=== PATIENT | male | born 1985 | race Caucasian/White ===

== ENCOUNTER 2024-06-06 13:44 | Outpatient (CLI) | payer BC, SELFPAY ==
--- NOTE | ~2024-06-06 | XR_ITS ---
XR knee RT 3V 06/06/2024 14:01 Indication: Right knee pain for 4 months Procedure: 3 views right knee Comparison: No prior studies for comparison. Findings: There is mild osteoarthritis. No fracture, subluxation or dislocation. There is anatomic al ignment. No significant joint effusion. Impression: 1: Mild osteoarthritis. Reviewed, dictated and finalized at location B. Impression: 1: Mild osteoarthritis.
--- NOTE | ~2024-06-06 | XR_ITS ---
EXAM: XR shoulder LT min 2V DATE: 06/06/2024 14:01 HISTORY: chronic lt shoulder pain x 7 years . COMPARISON: None available. FINDINGS: Normal mineralization. No fracture or dislocation. No lytic or blastic lesion. Joint space s are maintained. No erosion or periosteal change. Soft tissues within normal limits. IMPRESSION: Unremarkable left shoulder radiograph findings. Reviewed, dictated and finalized at location K.
[2024-06-06 19:21] LABS: Hematocrit 46.9 % (42.0-52.0); Hemoglobin 16.1 g/dL (14.0-18.0); Mean Corpuscular HGB Conc 34.3 g/dl (32-36); Mean Corpuscular Hemoglobin 31.9 pg (26-34); Mean Corpuscular Volume 93.1 fl (80-100); Mean Platelet Volume 11.6 fl (7.4-10.4); Platelet Count Result 241 k/mm3 (150-375); Red Blood Count 5.04 M/mm3 (4.6-6.20); Red Cell Distribution Width 12.6 % (11.5-14.5); White Blood Count 6.9 K/mm3 (4.5-10.0)
[2024-06-06 19:56] LABS: Alanine Aminotransferase 31 U/L (6-50); Albumin Level 4.6 g/dL (3.5-5.1); Alkaline Phosphatase 54 U/L (38-126); Anion Gap 11 mmol/L (4-12); Aspartate Amino Transferase 60 U/L (17-59); Bilirubin,Total 0.5 mg/dL (0.2-1.3); Blood Urea Nitrogen 20 mg/dL (9-20); Calcium 9.2 mg/dL (8.4-10.2); Carbon Dioxide 29 mmol/L (22-30); Chloride 99 mmol/L (98-107); Cholesterol 163 mg/dL (0-200); Estimated Glomerular Filt Rate > 60; Glucose 84 mg/dL (65-110); HDL Direct 34 mg/dL; Potassium 4.2 mmol/L (3.4-5.0); Sodium 139 mmol/L (137-145); Triglycerides 258 mg/dL (<150)
[2024-06-06 20:07] LABS: LDL Cholesterol Direct 88 mg/dL
== END 2024-06-06 13:45 | disposition home or self-care (01) ==
PROVIDERS: PCP Nurse Practitioner Adult Health; Visit Provider Nurse Practitioner Adult Health
DX: Z13.9 Encounter for screening, unspecified (principal); M25.512 Pain in left shoulder; M25.561 Pain in right knee; M17.11 Unilateral primary osteoarthritis, right knee
CPT/HCPCS: 36415; 73030; 73562; 80053; 80061; 84443; 85027

== ENCOUNTER 2024-10-25 11:07 | Emergency (ER) | payer BC, SELFPAY ==
--- NOTE | 2024-10-25 11:13 | ED.GENADULT ---
HPI - General Adult General Chief complaint: Unspecified Stated complaint: stomach issue Time Seen by Provider: 10/25/24 11:29 Source: patient, RN notes reviewed and old records reviewed Mode of arrival: ambulatory Limitations: no limitations History of Present Illness HPI narrative: Patient presents with complaints of 5 days of bilateral lower abdominal pain, worse with sitting. Reports fever of 100 that has been limited to the evening hours for the past 5 days. He reports slightly decreased appetite, but denies any nausea or vomiting. Says that he thought he was constipated, so on Monday he took milk of magnesia and Dulcolax. Reports that he had watery stool for couple of hours, but now stool is ?like a rodriguez?. Denies any past abdominal surgeries. Denies any injury or trauma. Denies any urinary symptoms. Voices no other concerns or complaints today Related Data Allergies Allergy/AdvReac Type Severity Reaction Status Date / Time No Known Allergies Allergy Verified 10/25/24 11:08 Review of Systems Review of Systems: All systems reviewed & are unremarkable except as noted in HPI and below Constitutional: Constitutional: Reports no additional constitutional complaints ENT: Reports system reviewed and no additional complaints, except as documented Cardiovascular: Cardiovascular: Reports no additional cardiovascular complaints Respiratory: Respiratory: Reports no additional respiratory complaints Gastrointestinal: Gastrointestinal: Reports as per HPI, Reports no additional gastrointestinal complaints, Reports abdominal pain, Reports change in stool character, Reports constipation, Reports diarrhea and Denies vomiting PMFSH Past Medical History Medical History Carpal tunnel syndrome Encounter for preventative adult health care examination Surgical History Surgical History Hx of elbow surgery History of surgery on lower extremity H/O cervical spine surgery Family History Family History Father No problems noted. Mother Thyroid activity decreased Sibling Thyroid activity decreased Social History Social History Smoking status: Never smoker Second hand tobacco smoke exposure: Yes Alcohol intake: current Substance use: never Substance use type: does not use Do You Feel Safe in your Home?: Yes Lack of Transportation: No Lack of Food: Never True Current Housing: I Have Housing Concerned About Future Housing: Decline to Answer Difficulty Paying Gas/Electric Bills: Decline to Answer Difficulty Paying for Meds: Decline to Answer Currently Unemployed: Decline to Answer Education: Decline to Answer Difficulty w/ Childcare or Family Care: Decline to Answer Living arrangements: with family Occupation/Education: occupation 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 There is no relevant family history pertinent to the patient complaint. Exam Const: General: cooperative, no acute distress, alert and awake Orientation/consciousness: oriented to person, oriented to place and oriented to time HENMT: Head: normal to inspection Mouth: Yes moist mucous membranes Resp: Effort & Inspection: normal respiratory effort and able to speak in complete sentences Auscultation: clear to auscultation bilaterally, no crackles, no rales, no rhonchi and no wheezes Cardio: Palpation: normal PMI Rate: regular rate Rhythm: regular rhythm Heart sounds: S1 normal heart sound present and S2 normal heart sound present GI: GI Palp: Yes abdominal tenderness, Yes Soft to palpation, Yes Tenderness to palpation present (GI) (Bilateral lower quad) and Yes Guarding due to palpation present (GI) (Bilateral lower quadrant) Auscultation: normal bowel sounds Neuro: General: oriented to person, oriented to place and oriented to time Cranial nerves: Yes CN's II-XII intact bilaterally Psych: Appearance: grossly normal Thought process: Normal thought process present Insight: Good insight present (Psych) Judgement: Good judgement present (Psych) Course Course Level of Care: Express Care Visit Vital Signs Vital signs: Reviewed Transfer Transfered to: Bill Transportation: Other (Private vehicle) Transfer rationale: Patient with tenderness and guarding bilateral lower abdomen. Needs further workup than [facility] come can provide Medical Decision Making MDM Narrative Medical decision making narrative: Patient with change in stool pattern, bilateral lower abdominal pain, guarding on exam. Transferred to emergency department for further workup than what can be offered at [facility] Discharge instructions reviewed with patient, as well as provided in writing per nursing staff. The instructions also include specific and strict return/GO TO THE ER as well as f/u information. All questions have been answered, and the patient deny any further questions with discharge and discharge plan. Some parts of this dictation were generated by voice recognition software and may contain typographical and/or grammatical inaccuracies. Differential Diagnosis Differential Diagnosis: Diverticulitis, appendicitis, constipation, bowel obstruction Medical Records Medical records reviewed: Yes I reviewed the external patient's medical records. Vital Signs Vital Signs: reviewed Lab Data Lab results reviewed: Yes I reviewed the patient's lab results. Lab results narrative: reviewed Discharge Plan Discharge Clinical Impression: Abdominal pain Qualifiers: Abdominal location: lower abdomen, unspecified Qualified Code(s): R10.30 - Lower abdominal pain, unspecified Patient Disposition: Acute Care Hospital Condition: Stable Instructions: Antibiotic Form Additional Instructions: Go straight to emergency department. Do not stop to eat or drink Patient Language: Vietnamese Follow-up/Referrals: Melly Almazan APRN [Primary Care Provider] - Time of Disposition: 11:45
[2024-10-25 11:17] VITALS: BP 127/80; PULSE 66; RESP 16; TEMP 36.1; O2SAT 99
== END 2024-10-25 11:46 | disposition short-term general hospital (02) ==
PROVIDERS: Emergency Provider Nurse Practitioner Family; PCP Nurse Practitioner Adult Health
DX: R10.31 Right lower quadrant pain (principal); R10.32 Left lower quadrant pain
CPT/HCPCS: 99212; G0463

== ENCOUNTER 2024-10-25 12:01 | Emergency (ER) | payer BC, SELFPAY ==
--- NOTE | ~2024-10-25 | CT_ITS ---
EXAMINATION: CT abdomen pelvis w con DATE: 10/25/2024 14:01 INDICATION: Low abdominal pain. TECHNIQUE: Computed tomography (CT) of the abdomen and pelvis was performed with 100 mL Omnipaque 350 intravenous contrast. Automated exposure control and iterative reconstruction technique were employe d. The dose-length product was 686.43 mGy-cm. COMPARISON: None. FINDINGS: The visualized portions of the lung bases demonstrate mild atelectasis. There is a 3 mm nod ule left lower lobe, likely benign. No pleural effusion. The heart size is normal. No pericardial eff usion. There is a 14 mm mass in right hepatic lobe. A calcification in the liver is consistent with old granulomatous disease. The gallbladder, spleen, pancreas, adrenal glands, and kidneys are normal. There is fat stranding around a diverticulum of the sigmoid colon, consistent with diverticulitis. T here are no dilated loops of bowel. The appendix is normal. There are no pathologically enlarged lymp h nodes. There is no free intraperitoneal fluid. There are chronic bilateral L5 pars defects. There i s 6 mm anterolisthesis of L5 on S1. There is mild chronic anterior wedging of T12 vertebral bodies. T here is moderate thoracic spondylosis. There is severe lower lumbar spondylosis. IMPRESSION: 1. Acute sigmoid diverticulitis. No perforation or abscess. 2. 14 mm liver mass, which may be benign or less likely malignant. Abdomen MRI without and with contr ast is recommended. Reviewed, dictated and finalized at location A. 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 Acute sigmoid diverticulitis. No perforation or abscess. 2. 14 mm liver mass, which may be benign or less likely malignant. Abdomen MRI without and with contrast is recommended.
[2024-10-25 12:06] VITALS: BP 131/77; PULSE 71; RESP 16; TEMP 36.5; O2SAT 98
--- NOTE | 2024-10-25 13:11 | ED.ABDPAIN ---
HPI - Abdominal Pain General Chief Complaint: Abdominal Pain <Weston Narayanan PA-C - Last Filed: 10/25/24 16:33> Stated Complaint: abd pain <Weston Narayanan PA-C - Last Filed: 10/25/24 16:33> Time Seen by Provider: 10/25/24 16:16 <Weston Narayanan PA-C - Last Filed: 10/25/24 16:33> Focused HPI: This is a 39-year-old male who presents to the ED for chief complaint of lower abdominal pain for the past 5 days. Reports he starting to get fevers at nighttime. States this to control will up to 100 F at night. Endorses slight bilateral flank pain on initial onset, however this has subsided. He has not had any urinary symptoms. thought he was maybe constipated so he took Dulcolax but has hadno diarrhea otherwise. [facility] due to lower abdominal tenderness. No abdominal surgical Hx. GENERAL: Well-appearing, well-nourished, and in no acute distress. HEAD: Normocephalic, atraumatic. CHEST: Clear to auscultation. No respiratory distress. HEART: Regular rate and rhythm. ABD: soft, tenderness across lower abdomen. Abdomen is not rigid. NEURO: Alert and oriented x3. Patient screened in triage and initial orders placed. Additional care and disposition to be based upon diagnostic testing and treatment. <Weston Narayanan PA-C - Last Filed: 10/25/24 16:33> Source: patient <Weston Narayanan PA-C - Last Filed: 10/25/24 16:33> Mode of arrival: ambulatory <Weston Narayanan PA-C - Last Filed: 10/25/24 16:33> Limitations: no limitations <Weston Narayanan PA-C - Last Filed: 10/25/24 16:33> History of Present Illness HPI narrative: Agree with HPI <Casey Mcfarland MD - Last Filed: 10/25/24 16:51> Related Data Allergies/Adverse Reactions: Allergies Allergy/AdvReac Type Severity Reaction Status Date / Time No Known Allergies Allergy Verified 10/25/24 11:08 <Weston Narayanan PA-C - Last Filed: 10/25/24 16:33> Review of Systems Review of Systems: All systems reviewed & are unremarkable except as noted in HPI and below <Casey Mcfarland MD - Last Filed: 10/25/24 16:51> Constitutional: Constitutional: Reports no additional constitutional complaints <Casey Mcfarland MD - Last Filed: 10/25/24 16:51> Cardiovascular: Cardiovascular: Reports no additional cardiovascular complaints <Casey Mcfarland MD - Last Filed: 10/25/24 16:51> Respiratory: Respiratory: Reports no additional respiratory complaints <Casey Mcfarland MD - Last Filed: 10/25/24 16:51> Gastrointestinal: Gastrointestinal: Reports no additional gastrointestinal complaints <Casey Mcfarland MD - Last Filed: 10/25/24 16:51> [facility] Past Medical History Medical History: Medical History Carpal tunnel syndrome Encounter for preventative adult health care examination <Weston Narayanan PA-C - Last Filed: 10/25/24 16:33> Surgical History Surgical History: Surgical History Hx of elbow surgery History of surgery on lower extremity H/O cervical spine surgery <Weston Narayanan PA-C - Last Filed: 10/25/24 16:33> Family History Family History: Family History Father No problems noted. Mother Thyroid activity decreased Sibling Thyroid activity decreased <Weston Narayanan PA-C - Last Filed: 10/25/24 16:33> Social History Social History: Social History Smoking status: Never smoker Second hand tobacco smoke exposure: Yes Alcohol intake: current Substance use: never Substance use type: does not use Do You Feel Safe in your Home?: Yes Lack of Transportation: No Lack of Food: Never True Current Housing: I Have Housing Concerned About Future Housing: Decline to Answer Difficulty Paying Gas/Electric Bills: Decline to Answer Difficulty Paying for Meds: Decline to Answer Currently Unemployed: Decline to Answer Education: Decline to Answer Difficulty w/ Childcare or Family Care: Decline to Answer Living arrangements: with family Occupation/Education: occupation 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 HEAD: Normocephalic, atraumatic. ENT: Mucous membranes moist. CHEST: Clear to auscultation. No respiratory distress. HEART: Regular rate and rhythm. Normal peripheral pulses. ABDOMEN: Soft, tender palpation bilateral lower quadrants, nondistended. EXTREMITIES: Normal range of motion. No edema. SKIN: Warm, dry, no rash. NEURO: Alert and oriented x3. PSYCH: Normal mood and affect. <Casey Mcfarland MD - Last Filed: 10/25/24 16:51> Course Course Emergency Course: Patient resting comfortably. Informed of results. Discharge home with supportive care and antibiotics. <Casey Mcfarland MD - Last Filed: 10/25/24 16:51> Vital Signs Vital signs: Vital Signs Temperature 97.7 F 10/25/24 12:06 Pulse Rate 71 10/25/24 12:06 Respiratory Rate 16 10/25/24 12:06 Blood Pressure 131/77 10/25/24 12:06 Pulse Oximetry 98 10/25/24 12:06 Temperature 97.8 F 10/25/24 16:19 Pulse Rate 78 10/25/24 16:19 Respiratory Rate 16 10/25/24 16:19 Blood Pressure 120/87 10/25/24 16:19 Pulse Oximetry 99 10/25/24 16:19 <Weston Narayanan PA-C - Last Filed: 10/25/24 16:33> Vital Signs Temperature 97.7 F 10/25/24 12:06 Pulse Rate 71 10/25/24 12:06 Respiratory Rate 16 10/25/24 12:06 Blood Pressure 131/77 10/25/24 12:06 Pulse Oximetry 98 10/25/24 12:06 Temperature 97.8 F 10/25/24 16:19 Pulse Rate 78 10/25/24 16:19 Respiratory Rate 16 10/25/24 16:19 Blood Pressure 120/87 10/25/24 16:19 Pulse Oximetry 99 10/25/24 16:19 <Casey Mcfarland MD - Last Filed: 10/25/24 16:51> MDM - Abdominal Pain Lab Data Result diagrams: 10/25/24 13:20 10/25/24 13:20 <Weston Narayanan PA-C - Last Filed: 10/25/24 16:33> Labs: Lab Results 10/25/24 Range/Units 13:20 WBC 10.3 H (4.5-10.0) K/mm3 RBC 5.21 (4.6-6.20) M/mm3 Hgb 16.7 (14.0-18.0) g/dL Hct 47.3 (42.0-52.0) % MCV 90.8 (80-100) fl MCH 32.1 (26-34) pg MCHC 35.3 (32-36) g/dl RDW 12.0 (11.5-14.5) % Plt Count 240 (150-375) k/mm3 MPV 10.6 H (7.4-10.4) fl Immature Gran % (Auto) 0.3 (0-0.5) % Neut % (Auto) 70.2 (45.5-73.1) % Lymph % (Auto) 19.2 (18.3-44.2) % Sebastian % (Auto) 8.5 (2.6-8.5) % Eos % (Auto) 0.9 (0-4.4) % Baso % (Auto) 0.9 (0.2-1.2) % Lymph # (Auto) 1.97 (0.9-3.2) K/mm3 Sebastian # (Auto) 0.9 H (0.1-0.6) K/mm3 Eos # (Auto) 0.1 (0-0.3) K/mm3 Baso # (Auto) 0.1 (0.0-0.1) K/mm3 Abs Immat Gran (auto) 0.03 (0.00-0.031) K/mm3 Absolute Neuts (auto) 7.2 H (1.3-6.7) K/mm3 Absolute Nucleated RBC 0.000 (0.0-0.012) K/mm3 Nucleated RBC % 0.0 (0.0-0.2) % Sodium 142 (137-145) mmol/L Potassium 4.2 (3.4-5.0) mmol/L Chloride 100 (98-107) mmol/L Carbon Dioxide 34 H (22-30) mmol/L Anion Gap 8 (4-12) mmol/L BUN 21 H (9-20) mg/dL Creatinine 1.08 (0.7-1.3) mg/dL Estim Creat Clear Calc 96 ml/min Estimated GFR > 60 (59 - ) Glucose 98 (65-110) mg/dL Calcium 9.7 (8.4-10.2) mg/dL Total Bilirubin 0.9 (0.2-1.3) mg/dL AST 54 (17-59) U/L ALT 167 H (6-50) U/L Alkaline Phosphatase 59 (38-126) U/L Total Protein 8.0 (6.3-8.2) g/dL Albumin 4.7 (3.5-5.1) g/dL Lipase 22 L (23-300) U/L Urine Color Dark yellow (Yellow) Urine Appearance Clear (Clear) Urine pH 6.0 (5.0-9.0) Ur Specific [place] 1.022 (1.001-1.035) Urine Protein Trace (Negative) mg/dL Urine Glucose (UA) Negative (Negative) mg/dL Urine Ketones Trace H (Negative) mg/dL Ur Blood (Man) Negative (Negative) Urine Nitrate Negative (Negative) Urine Bilirubin Negative (Negative) Urine Urobilinogen 0.2 (<2.0) mg/dL Leukocyte Esterase Rfl Negative (Negative) JAMES/UL Urine RBC 3-5 H (0-2) /hpf Urine WBC 0-5 (0-3) /hpf Ur Squamous Epith Cells None seen (Few) /hpf Urine Bacteria None seen /hpf Urine Casts 3-5 <Weston Narayanan PA-C - Last Filed: 10/25/24 16:33> Lab Results 10/25/24 Range/Units 13:20 WBC 10.3 H (4.5-10.0) K/mm3 RBC 5.21 (4.6-6.20) M/mm3 Hgb 16.7 (14.0-18.0) g/dL Hct 47.3 (42.0-52.0) % MCV 90.8 (80-100) fl MCH 32.1 (26-34) pg MCHC 35.3 (32-36) g/dl RDW 12.0 (11.5-14.5) % Plt Count 240 (150-375) k/mm3 MPV 10.6 H (7.4-10.4) fl Immature Gran % (Auto) 0.3 (0-0.5) % Neut % (Auto) 70.2 (45.5-73.1) % Lymph % (Auto) 19.2 (18.3-44.2) % Sebastian % (Auto) 8.5 (2.6-8.5) % Eos % (Auto) 0.9 (0-4.4) % Baso % (Auto) 0.9 (0.2-1.2) % Lymph # (Auto) 1.97 (0.9-3.2) K/mm3 Sebastian # (Auto) 0.9 H (0.1-0.6) K/mm3 Eos # (Auto) 0.1 (0-0.3) K/mm3 Baso # (Auto) 0.1 (0.0-0.1) K/mm3 Abs Immat Gran (auto) 0.03 (0.00-0.031) K/mm3 Absolute Neuts (auto) 7.2 H (1.3-6.7) K/mm3 Absolute Nucleated RBC 0.000 (0.0-0.012) K/mm3 Nucleated RBC % 0.0 (0.0-0.2) % Sodium 142 (137-145) mmol/L Potassium 4.2 (3.4-5.0) mmol/L Chloride 100 (98-107) mmol/L Carbon Dioxide 34 H (22-30) mmol/L Anion Gap 8 (4-12) mmol/L BUN 21 H (9-20) mg/dL Creatinine 1.08 (0.7-1.3) mg/dL Estim Creat Clear Calc 96 ml/min Estimated GFR > 60 (59 - ) Glucose 98 (65-110) mg/dL Calcium 9.7 (8.4-10.2) mg/dL Total Bilirubin 0.9 (0.2-1.3) mg/dL AST 54 (17-59) U/L ALT 167 H (6-50) U/L Alkaline Phosphatase 59 (38-126) U/L Total Protein 8.0 (6.3-8.2) g/dL Albumin 4.7 (3.5-5.1) g/dL Lipase 22 L (23-300) U/L Urine Color Dark yellow (Yellow) Urine Appearance Clear (Clear) Urine pH 6.0 (5.0-9.0) Ur Specific [place] 1.022 (1.001-1.035) Urine Protein Trace (Negative) mg/dL Urine Glucose (UA) Negative (Negative) mg/dL Urine Ketones Trace H (Negative) mg/dL Ur Blood (Man) Negative (Negative) Urine Nitrate Negative (Negative) Urine Bilirubin Negative (Negative) Urine Urobilinogen 0.2 (<2.0) mg/dL Leukocyte Esterase Rfl Negative (Negative) JAMES/UL Urine RBC 3-5 H (0-2) /hpf Urine WBC 0-5 (0-3) /hpf Ur Squamous Epith Cells None seen (Few) /hpf Urine Bacteria None seen /hpf Urine Casts 3-5 <Casey Mcfarland MD - Last Filed: 10/25/24 16:51> Imaging Data Radiologist's impression: ITS Impressions Abdomen/Pelvis CT 10/25/24 14:18 IMPRESSION: 1. Acute sigmoid diverticulitis. No perforation or abscess. 2. 14 mm liver mass, which may be benign or less likely malignant. Abdomen MRI without and with contrast is recommended. <Weston Narayanan PA-C - Last Filed: 10/25/24 16:33> ITS Impressions Abdomen/Pelvis CT 10/25/24 14:18 IMPRESSION: 1. Acute sigmoid diverticulitis. No perforation or abscess. 2. 14 mm liver mass, which may be benign or less likely malignant. Abdomen MRI without and with contrast is recommended. <Casey Mcfarland MD - Last Filed: 10/25/24 16:51> Discharge Plan Discharge Clinical Impression: Diverticulitis, Liver mass <Weston Narayanan PA-C - Last Filed: 10/25/24 16:33> Patient Disposition: Home, Self-Care <Weston Narayanan PA-C - Last Filed: 10/25/24 16:33> Condition: Stable <Weston Narayanan PA-C - Last Filed: 10/25/24 16:33> Instructions: Antibiotic Form, Diverticulitis (ED) <CHRISTA Salinas Last Filed: 10/25/24 16:33> Additional Instructions: Return to the emergency department if you develop severe abdominal pain, severe nausea and vomiting to the point where you are unable to keep down fluids, if you develop chest pain or difficulty breathing, blood in your stool, dizziness or fainting, or if you develop any other new or concerning symptoms as these could be signs of more serious medical illness. Try to stay well hydrated. You need an MRI of the Abdomen with and without contrast to evaluate a liver mass. <Weston Narayanan PA-C - Last Filed: 10/25/24 16:33> Patient Language: Yemeni <Weston Narayanan PA-C - Last Filed: 10/25/24 16:33> Prescriptions: New amoxicillin-pot clavulanate 875-125 mg tablet 1 tablet PO Q12H Qty: 20 0RF <CHRISTA Salinas Last Filed: 10/25/24 16:33> Follow-up/Referrals: Melly Almazan APRN [Primary Care Provider] - 1 Week <CHRISTA Salinas Last Filed: 10/25/24 16:33>
[2024-10-25 13:36] LABS: Basophils Absolute Auto 0.1 K/mm3 (0.0-0.1); Basophils Percent Auto 0.9 % (0.2-1.2); Eosinophils Absolute Auto 0.1 K/mm3 (0-0.3); Eosinophils Percent Auto 0.9 % (0-4.4); Hematocrit 47.3 % (42.0-52.0); Hemoglobin 16.7 g/dL (14.0-18.0); Immature Granulocyte Absolute 0.03 K/mm3 (0.00-0.031); Immature Granulocyte Percent A 0.3 % (0-0.5); Lymphocytes Absolute Auto 1.97 K/mm3 (0.9-3.2); Lymphocytes Percent Auto 19.2 % (18.3-44.2); Mean Corpuscular HGB Conc 35.3 g/dl (32-36); Mean Corpuscular Hemoglobin 32.1 pg (26-34); Mean Corpuscular Volume 90.8 fl (80-100); Mean Platelet Volume 10.6 fl (7.4-10.4); Monocytes Absolute Auto 0.9 K/mm3 (0.1-0.6); Monocytes Percent Auto 8.5 % (2.6-8.5); Neutrophils Absolute Auto 7.2 K/mm3 (1.3-6.7); Neutrophils Percent Auto 70.2 % (45.5-73.1); Platelet Count Result 240 k/mm3 (150-375); Red Blood Count 5.21 M/mm3 (4.6-6.20); White Blood Count 10.3 K/mm3 (4.5-10.0)
[2024-10-25 13:43] LABS: Add Urine Microscopic? YES; Alanine Aminotransferase 167 U/L (6-50); Albumin Level 4.7 g/dL (3.5-5.1); Alkaline Phosphatase 59 U/L (38-126); Anion Gap 8 mmol/L (4-12); Appearance Urine Clear (Clear); Aspartate Amino Transferase 54 U/L (17-59); Bacteria Urine None Seen /hpf; Bilirubin Urine Negative (Negative); Bilirubin,Total 0.9 mg/dL (0.2-1.3); Blood Urea Nitrogen 21 mg/dL (9-20); Blood Urine Negative (Negative); Calcium 9.7 mg/dL (8.4-10.2); Carbon Dioxide 34 mmol/L (22-30); Chloride 100 mmol/L (98-107); Color Urine Dark Yellow (Yellow); Estimated CRCL calculation 96 ml/min; Estimated Glomerular Filt Rate > 60; Glucose 98 mg/dL (65-110); Glucose Urine UA Negative (Negative); Ketones Urine Trace mg/dL (Negative); Leukocyte Esterase Ur Negative LEU/UL (Negative); Lipase 22 U/L (23-300); Nitrate Urine Negative (Negative); Potassium 4.2 mmol/L (3.4-5.0); Protein Urine Trace mg/dL (Negative); Sodium 142 mmol/L (137-145); Specific Grav Ur 1.022 (1.001-1.035); Squamous Epithelial Cell Urine None Seen /hpf (Few); Urobilinogen Urine 0.2 mg/dL (<2.0); WBC Urine 0-5 /hpf (0-3)
[2024-10-25 16:19] VITALS: BP 120/87; PULSE 78; RESP 16; TEMP 36.6; O2SAT 99
== END 2024-10-25 17:08 | disposition home or self-care (01) ==
PROVIDERS: Physician Assistant; Emergency Provider Emergency Medicine; PCP Nurse Practitioner Adult Health
DX: K57.32 Diverticulitis of large intestine without perforation or abscess without bleeding (principal); R16.0 Hepatomegaly, not elsewhere classified; Z77.22 Contact with and (suspected) exposure to environmental tobacco smoke (acute) (chronic)
CPT/HCPCS: 36415; 74177; 80053; 81001; 83690; 85025; 99284; Q9967

== ENCOUNTER 2024-11-21 08:34 | Outpatient (CLI) | payer BC, SELFPAY ==
--- NOTE | ~2024-11-21 | MR_ITS ---
EXAMINATION: MR abdomen wo/w con DATE: 11/21/2024 09:42 INDICATION: Hepatomegaly TECHNIQUE: Magnetic resonance imaging (MRI) of the abdomen was performed without and with 20 mL Multi svetlana intravenous contrast. Sequences included coronal T2-weighted SS-FSE, coronal and axial FS 2D-F IESTA, axial STIR FSE, axial T2-weighted SS-FSE, axial T2-weighted FS SS-FSE, axial diffusion-weighte d SE, axial dual-echo T1-weighted FSPGR, and axial and coronal T1-weighted LAVA. Postcontrast axial T 1-weighted LAVA images were obtained in a time course. Postcontrast coronal T1-weighted LAVA images w ere obtained. COMPARISON: CT dated 10/25/2024 FINDINGS: Heart size is normal. No pericardial or pleural effusion. Mild bilateral gynecomastia. 2 cm T2 hyperi ntense hemangioma in the right hepatic lobe with progressively increasing contrast enhancement over t he 10 minutes of imaging. Phrygian cap at the fundus of the normal gallbladder. Nonspecific mild sple nomegaly measuring 13.6 cm in maximal length which could be related to body habitus pancreas, bilater al adrenal glands and kidneys are normal. Visualized bowels including the appendix are normal. No pat hologically enlarged abdominal lymphadenopathy. Severe disc height loss with fibrofatty degenerative endplate changes at L5-S1. Mild spondylosis and more cephalad lumbar and lower thoracic spine with no pathologic marrow replacing process. IMPRESSION: 1. 2 cm hemangioma in the right hepatic lobe. 2. Nonspecific mild splenomegaly which may be related to body habitus. Reviewed, dictated and finalized at location A. VIORAL INTERVENTIONIST
--- OUTSIDE RECORDS SUMMARY | 2024-11-21 08:42 | XMS_ITS | Referral Summary ---
Author Organization [facility] Address [address] [place] [address] Care Team Providers Care Gill Box Operator Name Role Phone XiomylaurelJamalony Primary Care Provider [phone] Allergies No known active allergies Medications HYDROcodone-acet aminophen (VICODIN) 5-500 mg per tablet take 1 tablet by oral route every 4 - 6 hours as needed for pain 0 08/13/2012 Active ibuprofen (ADVIL,MOTRIN) 800 mg tablet take 1 tablet (800MG) by oral route 3 times every day with food 0 08/13/2012 Active naproxen (NAPROSYN) 500 mg tablet Take 1 tablet (500 mg total) by mouth 2 (two) times a day as needed for pain Take with food. 30 tablet 02/25/2023 Active cyclobenzaprine (FLEXERIL) 10 mg tablet Take 1 tablet (10 mg total) by mouth 2 (two) times a day as needed for muscle spasms 20 tablet 02/25/2023 Active Immunizations Name Administration Dates Next Due Tdap 08/21/2020 Social History Tobacco Use Types Packs/Day Years Used Date Smoking Tobacco: Never Assessed Smokeless Tobacco: Never Alcohol Use Standard Drinks/Week Comments Not Currently 0 (1 standard drink = 0.6 oz pur e alcohol) Personal Safety Answer Date Recorded Have you ever been in or are you currently in a harmful physical or emotional relationship or is someone making you feel afraid or unsafe? 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 Gender Identity Not on file Sexual Orientation Not on file Last Filed Vital Signs Vital Sign Reading Time Taken Comments Blood Pressure 118/63 02/25/2023 6:36 AM CDT Pulse 59 02/25/2023 6:36 AM CDT Temperature 36.9 C (98.4 F) 02/25/2023 6:36 AM CDT Respiratory Rate 18 02/25/2023 6:36 AM CDT Oxygen Saturation 98% 02/25/2023 6:36 AM CDT Inhaled Oxygen Concentration - - Weight 99.8 kg (220 lb) 02/25/2023 6:36 AM CDT Height 177.8 cm (5' 10 ) 02/25/2023 6:36 AM CDT Body Mass Index 31.57 02/25/2023 6:36 AM CDT Plan of Treatment Not on file Insurance CHOICE PLUS CHOICE PLUS Member Subscriber Plan / Payer (Ef fective 2019-Present) Name:[employer] Relation to Subscriber:Spouse Name:KATE MALDONADO Date of :1984 (Home) Address: [address] [place] [address] Payer ID:[id number] (NAIC) Type:[facility] HMO/PPO Address: [address] PLAN Care Teams Gill Box Operator Relationship Specialty Start Date End Date Jamal Tapia DO PCP - General 01/07/10
--- OUTSIDE RECORDS SUMMARY | 2024-11-21 08:42 | XMS_ITS | Clinical Summary ---
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 Gender Identity Not on file Sexual Orientation Not on file Obstetrics History Last Filed Vital Signs Vital Sign Reading [...] 02/25/2023 6:36 AM CDT Plan of Treatment Health Maintenance Due Date Last Done Comments Depression Screening 1985 Hepatitis C Screening 1985 Varicella Vaccines (1 of 2 - 13+ 2-dose series) 1998 Regular Well Visit/Exam 18-64 2003 Covid-19 Vaccine (2 - 2023- season) 2024 05/18/2021 Influenza Vaccine (#1) 2024 DTaP/Tdap/Td Vaccine (6 - Td or Tdap) 08/21/2030 08/21/2020, 06/11/1990, 04/19/1989, Additional history exists HPV Vaccines Aged Out No longer eligi ble based on patient's age to complete this topic Pneumococcal vaccine <65 Aged Out No longer eligible based on patient's age to complete this topic Insurance [facility] CHOICE PLUS [facility] PLAN RASHEED BARNETT [id number] SI Care Teams Registered Medical Assistant Relationship Specialty Start Date End Date Jamal Tapia DO PCP - General 01/07/10
--- OUTSIDE RECORDS SUMMARY | 2024-11-21 08:42 | XMS_ITS | Clinical Summary ---
Author Organization [facility] Address [address] [place] [address] Phone Care Team Providers Care Claim Service Representative Name Role Phone Jamal Tapia DO Primary Care Provider +1- [phone] Social History Tobacco Use Types Packs/Day Years Used Date Smoking Tobacco: Never Assessed Sex and Gender Information Value Date Recorded Sex Assigned at Not on file Legal Sex Male 10:54 PM CDT Gender Identity Not on file Sexual Orientation Not on file Plan of Treatment Health Maintenance Due Date Last Done Comments Hepatitis C Virus (HCV) Screening 1985 TdaP Immunization 1985 Hepatitis B Immunization (1 of 3 - 19+ 3-dose series) 2004 Influenza Immunization (#1) 2024 SARS-COV-2 Immunization ( - season) 2024 Respiratory Syncytial Virus (RSV) Immunization (Adult) (1 - 1-dose 75+ series) 2060 Meningococcal Immunization (ACWY) Aged Out No longer eligible based on patient's age to complete this topic Pneumococcal Immunization Combined Aged Out No longer eligible based on patient's age to complete this topic Rotavirus Immunization Aged Out No lo nger eligible based on patient's age to complete this topic Care Teams Claim Service Representative Relationship Specialty Start Date End Date Jamal Tapia DO PCP - General Family Medicine 12/12/16
== END 2024-11-21 08:35 | disposition home or self-care (01) ==
PROVIDERS: PCP Nurse Practitioner Adult Health; Visit Provider Nurse Practitioner Adult Health
DX: R16.0 Hepatomegaly, not elsewhere classified (principal); D18.03 Hemangioma of intra-abdominal structures; R16.1 Splenomegaly, not elsewhere classified
CPT/HCPCS: 74183; A9577

== ENCOUNTER 2024-12-20 02:12 | Day surgery (SDC) | payer BC, SELFPAY ==
[2024-12-09 14:37] VITALS: BMI 30.2
--- OUTSIDE RECORDS SUMMARY | 2024-12-20 02:14 | XMS_ITS | Referral Summary ---
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
--- OUTSIDE RECORDS SUMMARY | 2024-12-20 02:14 | XMS_ITS | Clinical Summary ---
Author Organization [facility] Address [address] [place] [address] Phone Care Team Providers Care Quality Assurance Advisor Name Role Phone Jamal Tapia DO Primary Care Provider +1- [phone] Social History Tobacco Use Types Packs/Day Years [...] age to complete this topic Care Teams Quality Assurance Advisor Relationship Specialty Start Date End Date Jamal Tapia DO PCP - General Family Medicine 12/12/16
--- OUTSIDE RECORDS SUMMARY | 2024-12-20 02:14 | XMS_ITS | Clinical Summary ---
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
[2024-12-20 10:48] VITALS: BP 107/89; PULSE 75; RESP 18; TEMP 36.6; O2SAT 96; BMI 28.8
[2024-12-20] MEDS: LACTATED RINGERS 1,000 ML 150 ML IV CONT (10:57)
--- NOTE | 2024-12-20 11:02 | WPDANESEPPF ---
Anes - Initial Pre Proc Eval Procedure: Operation Date: 12/20/24 11:30 Proposed Procedures p Colonoscopy - Kiran Espitia MD Date/Time: 12/20/24 11:02 Surgeon: Kiran Espitia MD Pre Op Diagnosis: hx of disease of digestive system Patient Data Age: 39 Gender: M Height: 1.78 m Weight: 91.1 kg Last Vital Signs Temp 97.9 F 12/20/24 10:48 Pulse 75 12/20/24 10:48 Resp 18 12/20/24 10:48 BP 107/89 12/20/24 10:48 Pulse Ox 96 12/20/24 10:48 O2 Del Method Room Air 12/20/24 10:48 Allergies Allergy/AdvReac Type Severity Reaction Status Date / Time No Known Allergies Allergy Verified 12/20/24 10:46 Home Medications ?Medication ?Instructions ?Recorded ?Confirmed ?Type No Home Medications 12/20/24 12/20/24 History Patient hx anesthesia problems: none Family hx anesthesia problems: none Results Review: All pre-operative results and documents have been reviewed as part of the pre-operative evaluation. [facility] Past Medical History Medical History Carpal tunnel syndrome Encounter for preventative adult health care examination Surgical History Surgical History Hx of elbow surgery History of surgery on lower extremity H/O cervical spine surgery Family History Family History Father No problems noted. Mother Thyroid activity decreased Sibling Thyroid activity decreased Social History Social History Smoking status: Never smoker Second hand tobacco smoke exposure: Yes Alcohol intake: current Substance use: current Substance use type: marijuana Other substance usage details: marijuana daily Do You Feel Safe in your Home?: Yes Lack of Transportation: No Lack of Food: Never True Current Housing: I Have Housing Concerned About Future Housing: Decline to Answer Difficulty Paying Gas/Electric Bills: Decline to Answer Difficulty Paying for Meds: Decline to Answer Currently Unemployed: Decline to Answer Education: Decline to Answer Difficulty w/ Childcare or Family Care: Decline to Answer Living arrangements: with family Occupation/Education: occupation Additional occupation/education comments: [employer] Gender identity (if verbalized by the patient): Male Spiritual care concerns: No Agree to blood products: Yes Gavin - Robert Final PreProcedure Day of Procedure 12/20/24 11:02 Patient weight: normal Lungs: normal air movement Airway: Mallampati scale class II Neurological: alert and oriented Last oral intake: >/= 8 hours ASA classification: I Emergent: no Anesthetic plan: proceed Anesthesia type and monitoring: general GIVS and standard monitoring Results Review: All pre-operative results and documents have been reviewed as part of the pre-operative evaluation. Hx of diverticulitis, active w no cp or sob. Informed Consent: The patient's anesthetic plan and its attendant risks and benefits were discussed with the patient/family/POA. Questions were solicited and answers provided to the satisfaction of the patient/family/POA.
[2024-12-20 12:23] VITALS: BP 124/77; PULSE 58; RESP 18; O2SAT 97
[2024-12-20 12:33] VITALS: BP 109/79; PULSE 58; RESP 20; O2SAT 99
[2024-12-20 12:43] VITALS: BP 117/73; PULSE 62; RESP 18; O2SAT 98
== END 2024-12-20 13:04 | disposition home or self-care (01) ==
PROVIDERS: PCP Nurse Practitioner Adult Health; Referring Provider Nurse Practitioner Adult Health; Visit Provider Internal Medicine Gastroenterology
PROC: 0DJD8ZZ Inspection of Lower Intestinal Tract, Via Natural or Artificial Opening Endoscopic (ICD-10-PCS; CPT 45378; principal; 2024-12-20 11:30)
DX: Z09 Encounter for follow-up examination after completed treatment for conditions other than malignant neoplasm (principal); K57.30 Diverticulosis of large intestine without perforation or abscess without bleeding; K64.8 Other hemorrhoids; G56.00 Carpal tunnel syndrome, unspecified upper limb; F12.90 Cannabis use, unspecified, uncomplicated; Z98.890 Other specified postprocedural states; Z98.1 Arthrodesis status; Z87.19 Personal history of other diseases of the digestive system
CPT/HCPCS: 45378; J2003; J2704; J7120